=== PATIENT | female | born 1955 | race Asian ===

== ENCOUNTER 2023-06-05 11:28 | Emergency (ER) | payer MEDICARE, OTHER ==
[~2023-06-05] VITALS: Ht 157.5 cm; Wt 58.5 kg
[2023-06-05] MEDS ORDERED: KETOROLAC TROMETHAMINE 15 MG/ML VIAL ONE (14:28)
[2023-06-05] MEDS ORDERED: CYCLOBENZAPRINE 10 MG TABLET ONE (14:28)
[2023-06-05] MEDS ORDERED: CYCLOBENZAPRINE 10 MG TABLET PO ONE (14:30)
[2023-06-05] MEDS ORDERED: KETOROLAC TROMETHAMINE 15 MG/ML VIAL IM ONE (14:30)
[2023-06-05 16:20] LABS: APPEARANCE,URINE CLEAR (CLEAR); BILIRUBIN,URINE NEGATIVE (NEGATIVE); BLOOD, URINE 2+ Ery/uL (NEGATIVE); COLOR,URINE YELLOW (YELLOW); KETONES,URINE NEGATIVE (NEGATIVE); LEUKOCYTE ESTERASE ,URINE 3+ (NEGATIVE); NITRITE, URINE NEGATIVE (NEGATIVE); PROTEIN,URINE NEGATIVE (NEGATIVE); UGLUCOSE TRACE mg/dL (NEGATIVE); UROBILINOGEN,URINE 0.2 EU/dL (0.2)
[2023-06-05 18:06] LABS: ADD URINE CULTURE YES; BACTERIA,URINE 3+ /HPF (None Seen)
[2023-06-05] MEDS ORDERED: IBUP-1953 PO (19:01)
[2023-06-05] MEDS ORDERED: CYCL5TAB PO (19:01)
[2023-06-05] MEDS ORDERED: NITR100C PO (19:01)
[2023-06-05 19:20] VITALS: BP 141/84; TEMP 98.1; O2SAT 100
== END 2023-06-05 19:21 | disposition home or self-care (01) ==
LOC: ER 11:33
DX: N39.0 Urinary tract infection, site not specified (principal); M54.50 Low back pain, unspecified; Z98.890 Other specified postprocedural states; Z79.899 Other long term (current) drug therapy; Z90.49 Acquired absence of other specified parts of digestive tract
CPT/HCPCS: 99283; 96372; 87086; 81001; J1885

== ENCOUNTER 2025-03-19 21:44 | Inpatient (IN) | payer MEDICARE, OTHER ==
[~2025-03-19] VITALS: Ht 144.8 cm; Wt 54.0 kg
[~2025-03-19 21:44] MED LIST: CYCL5TAB PO; IBUP-1953 PO; NITR100C PO
[2025-03-19] MEDS ORDERED: ONDANSETRON HCL/PF 4 MG/2 ML VIAL ONE (23:26)
[2025-03-19] MEDS ORDERED: LIDOCAINE VISCOUS 2% UD 15 ML UDC ONE (23:26)
[2025-03-19] MEDS ORDERED: MAG HYDROX/AL HYDROX/SIMETH 30 ML UDC ONE (23:26)
[2025-03-19] MEDS ORDERED: SIMETHICONE 80 MG TAB.CHEW ONE (23:26)
[2025-03-19 23:51] LABS: PLATELET COUNT (AUTO) 138 K/uL (150-450); RED BLOOD CELL COUNT(AUTO) 3.70 MIL/uL (4.0-5.2); RED CELL DISTRIBUTION WIDTH 15.6 % (11.5-15.0); WHITE BLOOD COUNT (AUTO) 4.9 K/uL (4.3-11.0)
[2025-03-20 00:04] LABS: CALCIUM, SERUM 9.3 mg/dL (8.5-10.1); CREATININE 1.3 mg/dL (0.6-1.3); SODIUM SERUM 125 mmol/L (136-145); UREA NITROGEN, BLOOD 21 mg/dL (7-18)
[2025-03-20] MEDS: IV NS 0.9% 500 ML BAG IV ONE (00:04)
[2025-03-20] MEDS: ONDANSETRON HCL/PF 4 MG/2 ML VIAL IVP ONE (00:04)
[2025-03-20] MEDS: SIMETHICONE 80 MG TAB.CHEW PO ONE (00:04)
[2025-03-20] MEDS: MAG HYDROX/AL HYDROX/SIMETH 30 ML UDC PO ONE (00:04)
[2025-03-20] MEDS: LIDOCAINE VISCOUS 2% UD 15 ML UDC MM ONE (00:04)
[2025-03-20 00:09] LABS: ASPARTATE AMINOTRANSFERASE 28 U/L (15-37); TOTAL PROTEIN, SERUM 7.5 g/dL (6.4-8.2)
[2025-03-20 00:30] LABS: INR 0.95 (0.91-1.10)
[2025-03-20] MEDS ORDERED: Z GUARD REMEDY 4 OZ OINT TP PRN (00:30)
[2025-03-20] MEDS ORDERED: MAGNESIUM HYDROXIDE 30 ML UDC PO PRN (00:30)
[2025-03-20] MEDS ORDERED: ONDANSETRON HCL/PF 4 MG/2 ML VIAL IVP PRN (00:30)
[2025-03-20] MEDS ORDERED: ASPIRIN 325 MG TABLET ONE (00:31)
[2025-03-20 00:32] LABS: APPEARANCE,URINE CLEAR (CLEAR); BLOOD, URINE NEGATIVE Ery/uL (NEGATIVE); LEUKOCYTE ESTERASE ,URINE NEGATIVE (NEGATIVE); NITRITE, URINE NEGATIVE (NEGATIVE); UGLUCOSE 3+ mg/dL (NEGATIVE)
[2025-03-20] MEDS: ASPIRIN 325 MG TABLET PO ONE (00:38)
[2025-03-20 01:15] LABS: ADD URINE CULTURE NO; SQUAMOUS EPITHELIAL CELL,UR Few /HPF (None Seen)
[2025-03-20 04:00] VITALS: BP 134/73; TEMP 97.7; O2SAT 100
[2025-03-20 08:00] VITALS: BP 140/51; TEMP 97.3; O2SAT 100
[2025-03-20 08:05] LABS: PHOSPHORUS 3.5 mg/dL (2.5-4.9)
[2025-03-20] MEDS ORDERED: METF-442 PO (08:29)
[2025-03-20] MEDS ORDERED: AMLO-212 PO (08:29)
[2025-03-20] MEDS ORDERED: LISI40TA13 PO (08:29)
[2025-03-20] MEDS ORDERED: EMPA25TA PO (08:29)
[2025-03-20] MEDS ORDERED: ATOR10TA PO (08:29)
[2025-03-20] MEDS ORDERED: ASPI-1420 PO (08:29)
[2025-03-20] MEDS ORDERED: LATA2.5D15 EACHEYE (08:29)
[2025-03-20] MEDS: PANTOPRAZOLE 40 MG TABLET.DR PO SCH (08:52)
[2025-03-20 10:24] LABS: CALCIUM, SERUM 8.6 mg/dL (8.5-10.1); CREATININE 1.2 mg/dL (0.6-1.3); SODIUM SERUM 130.0 mmol/L (136-145); UREA NITROGEN, BLOOD 18.0 mg/dL (7-18)
[2025-03-20 12:00] VITALS: BP 135/73; TEMP 98.6; O2SAT 100
[2025-03-20 16:00] VITALS: BP 151/76; TEMP 98.5; O2SAT 100
[2025-03-20] MEDS: MAG HYDROX/AL HYDROX/SIMETH 30 ML UDC PO PRN (17:06)
[2025-03-20 20:00] VITALS: BP 150/71; TEMP 97.7; O2SAT 99
[2025-03-20] MEDS: ACETAMINOPHEN 325 MG TABLET PO PRN (21:46)
[2025-03-21] VITALS: BP 138/73; TEMP 97.9; O2SAT 99
[2025-03-21 04:00] VITALS: BP 131/72; TEMP 97.9; O2SAT 100
[2025-03-21 06:10] LABS: PLATELET COUNT (AUTO) 272 K/uL (150-450); RED BLOOD CELL COUNT(AUTO) 4.98 MIL/uL (4.0-5.2); RED CELL DISTRIBUTION WIDTH 15.1 % (11.5-15.0); WHITE BLOOD COUNT (AUTO) 3.5 K/uL (4.3-11.0)
[2025-03-21 06:36] LABS: CALCIUM, SERUM 8.8 mg/dL (8.5-10.1); CREATININE 1.2 mg/dL (0.6-1.3); SODIUM SERUM 126.0 mmol/L (136-145); UREA NITROGEN, BLOOD 24.0 mg/dL (7-18)
[2025-03-21 08:00] VITALS: BP 143/74; TEMP 97.5; O2SAT 100
[2025-03-21] MEDS: ATORVASTATIN 10 MG TABLET PO SCH (08:57)
[2025-03-21] MEDS: LISINOPRIL (20MG) 20 MG TABLET PO SCH (08:57)
[2025-03-21] MEDS: AMLODIPINE BESYLATE 5 MG TABLET PO SCH (08:57)
[2025-03-21] MEDS: ASPIRIN EC 81 MG TABLET.DR PO SCH (08:58)
[2025-03-21 12:00] VITALS: BP 141/76; TEMP 97.3; O2SAT 100
[2025-03-21] MEDS ORDERED: PANT40TA2 PO (13:59)
== END 2025-03-21 18:13 | disposition home or self-care (01) | DRG 391 ==
LOC: ER 21:49 → MEDSG1 03-20 01:34 → TELE1 03-20 06:16
PROVIDERS: ADMIT Internal Medicine; ATTEND Internal Medicine
DX: R10.13 Epigastric pain (principal); I21.A1 Myocardial infarction type 2; E87.1 Hypo-osmolality and hyponatremia; K21.9 Gastro-esophageal reflux disease without esophagitis; Z90.710 Acquired absence of both cervix and uterus; E78.5 Hyperlipidemia, unspecified; I10 Essential (primary) hypertension; E86.1 Hypovolemia; Z79.84 Long term (current) use of oral hypoglycemic drugs; K29.70 Gastritis, unspecified, without bleeding
CPT/HCPCS: 36415; 71045-TC; 80048-TC; 80076-TC; 81001; 82533; 83690-TC; 83735-TC; 84100-TC; 84443-TC; 84484-TC; 84550-TC; 85025-TC; 85730-TC; 87081-TC; 93307-TC; G0378; J2405; J7040